=== PATIENT | female | born 2000 | race Caucasian/White ===

== ENCOUNTER 2019-01-11 05:49 | Emergency (ER) | payer OTHER ==
[~2019-01-11] VITALS: Ht 170.2 cm; Wt 66.7 kg
[2019-01-11] MEDS ORDERED: DEXAMETHASONE 4 MG/ML, 5ML ONE (06:25)
[2019-01-11] MEDS ORDERED: FAMOTIDINE 20 MG TABLET ONE (06:25)
[2019-01-11] MEDS ORDERED: DEXAMETHASONE 4 MG/ML, 1ML PO ONE (06:30)
[2019-01-11] MEDS ORDERED: FAMOTIDINE 20 MG TABLET PO ONE (06:30)
[2019-01-11 06:54] LABS: BASOPHILS # (AUTO) 0.03 x10^3/uL (0-0.3); BASOPHILS % (AUTO) 0 % (0-1); EOSINOPHILS # (AUTO) 0.42 x10^3/uL (0-0.8); EOSINOPHILS % (AUTO) 4 % (1-7); LYMPHOCYTES # (AUTO) 1.29 x10^3/uL (1-6.1); LYMPHOCYTES % (AUTO) 12 % (22-44); MD NO; MEAN CORPUSCULAR HEMOGLOBIN 31.4 pg (27.0-34.8); MEAN CORPUSCULAR HGB CONC 34.1 g/dL (32.4-35.8); MEAN CORPUSCULAR VOLUME 92.2 fL (80-100); MEAN PLATELET VOLUME 7.9 fL (7.4-10.4); MONOCYTES # (AUTO) 0.78 x10^3/uL (0-1.4); MONOCYTES % (AUTO) 8 % (2-9); NEUTROPHILS # (AUTO) 7.92 x10^3/uL (1.8-8.0); NEUTROPHILS % (AUTO) 76 % (42-75); PLATELET COUNT 292 x10^3/uL (130-400); RED CELL DISTRIBUTION WIDTH 13.2 % (9.6-15.2)
--- NOTE | 2019-01-11 07:00 | NUR ---
RECEIVED REPORT FROM AYDEN KNOTT. PT NOTED TO HAVE GENERALIZED FACIAL SWELLING. MOTHER AT BEDSIDE. NO DISTRESS. AWAITING LAB RESULTS
--- NOTE | 2019-01-11 07:02 | NUR ---
PT ADDITIONALLY NOTED TO HAVE GENERALIZED REDNESS AND RASH ALL OVER BODY. STATES SORE THROAT BUT NOT SWOLLEN
[2019-01-11] MEDS ORDERED: CEFTRIAXONE 1,000 MG IM ONE (08:00)
[2019-01-11] MEDS ORDERED: CEFTRIAXONE 1,000 MG ONE (08:10)
[2019-01-11] MEDS ORDERED: LIDOCAINE-MPF 1%, 5ML ONE (08:11)
--- NOTE | 2019-01-11 08:21 | NUR ---
MEDICATED PER ORDERS
[2019-01-11 09:13] VITALS: BP 104/67
[2019-01-11] MEDS ORDERED: INSULIN REGULAR 100 UNITS/ML, 3ML VIAL ONE (10:18)
== END 2019-01-11 09:15 | disposition home or self-care (01) ==
LOC: ED 09:01
DX: J02.0 Streptococcal pharyngitis (principal)
CPT/HCPCS: 36415; 85025; 86308; 96372; 99283; J0696; J1100

== ENCOUNTER 2019-11-26 09:04 | Outpatient (CLI) | payer OTHER ==
[2019-11-26] MEDS ORDERED: OMNIPAQUE 350 MG/ML, 100ML BOTTLE ONE (15:23)
== END 2019-11-26 23:59 | disposition home or self-care (01) ==
LOC: CFH 09:04
PROVIDERS: ATTEND Family Medicine
DX: M54.9 Dorsalgia, unspecified (principal)
CPT/HCPCS: 74178; Q9967